=== PATIENT | female | born 1950 | race Caucasian/White ===

== ENCOUNTER 2017-05-08 03:02 | Emergency (ER) | payer MEDICARE, BC ==
[~2017-05-08 03:02] MED LIST: HYDROmorphone 1 MG/ML Syringe IVPUSH ONE; Ondansetron 4 MG/2 ML SDV IV ONE
[2017-05-08 03:10] VITALS: BP 174/81
[2017-05-08] MEDS ORDERED: methylPREDNISolone Sodium Succinate 125 MG/2 ML SDV IVPUSH ONE (03:52)
[2017-05-08] MEDS ORDERED: HYDROmorphone 1 MG/ML Syringe IVPUSH ONE (05:03)
--- NOTE | 2017-05-08 05:28 | EDM.PDOC ---
ED HPI GENERAL MEDICAL PROBLEM - General Chief Complaint: Lower Extremity Injury/Pain Stated Complaint: AMBULANCE Time Seen by Provider: 05/08/17 03:05 Source of Information: Reports: Patient History Limitations: Reports: No Limitations - History of Present Illness INITIAL COMMENTS - FREE TEXT/NARRATIVE: c/o sever low back pain with radiation down left leg increasing for past 2 days. Unable to find comfortable position and pain medication not working. Hx L4 -5 laminectomy in December, had been doing well until fell down on stairs. 2 months ago. Left Leg Pain Score (Numeric/FACES): 10 - Related Data Allergies Allergy/AdvReac Type Severity Reaction Status Date / Time amoxicillin [From Augmentin] Allergy Nausea Verified 05/08/17 03:11 clavulanic acid Allergy Nausea Verified 05/08/17 03:11 [From Augmentin] codeine Allergy Cannot Verified 05/08/17 03:10 Remember iodine Allergy Hives Verified 05/08/17 03:11 Home Meds: Home Meds metFORMIN [metFORMIN XR] 500 mg PO 01/17/14 [History] Past Medical History HEENT History: Reports: Impaired Vision Cardiovascular History: Reports: Hypertension Neurological History: Reports: Other (See Below) Other Neuro History: brain tumur Endocrine/Metabolic History: Reports: Other (See Below) Other Endocrine/Metabolic History: borderline diabetic - Past Surgical History GI Surgical History: Reports: Colonoscopy Musculoskeletal Surgical History: Reports: Hip Replacement Other Musculoskeletal Surgeries/Procedures:: fasitectomy, laminectomy Social & Family History - Tobacco Use Smoking Status *Q: Never Smoker Second Hand Smoke Exposure: No - Recreational Drug Use Recreational Drug Use: No Review of Systems - Review of Systems Review Of Systems: ROS reveals no pertinent complaints other than HPI. ED EXAM, GENERAL - Physical Exam Exam: See Below Exam Limited By: No Limitations General Appearance: Alert, Moderate Distress Eye Exam: Bilateral Eye: EOMI Ears: Normal External Exam Nose: Normal Inspection Throat/Mouth: Normal Inspection Head: Atraumatic, Normocephalic Neck: Normal Inspection Respiratory/Chest: No Respiratory Distress, Lungs Clear, Normal Breath Sounds Cardiovascular: Regular Rate, Rhythm GI/Abdominal: Normal Bowel Sounds, Soft, Non-Tender Back Exam: Paraspinal Tenderness (lumbar), Vertebral Tenderness (lumbar), Other (Sciatic pain Left). No: Full Range of Motion Neurological: Alert, Oriented, CN II-XII Intact, Normal Cognition, Normal Gait, Normal Reflexes, No Motor/Sensory Deficits Psychiatric: Normal Mood Skin Exam: Warm, Dry, Intact Course - Vital Signs Last Recorded V/S: Last Vital Signs Temp 98.5 F 05/08/17 03:02 Pulse 82 05/08/17 03:02 Resp 20 05/08/17 03:02 BP 174/81 H 05/08/17 03:02 Pulse Ox 98 05/08/17 03:02 - Orders/Labs/Meds Orders: Active Orders 24 hr Category Date Time Status Lumbar Spine wo Cont [CT] Urgent Exams 05/08/17 04:00 Taken Meds: Medications Discontinued Medications Generic Name Dose Route Start Last Admin Trade Name Freq PRN Reason Stop Dose Admin Hydromorphone HCl 1 mg 05/08/17 02:56 05/08/17 03:22 Dilaudid IVPUSH 05/08/17 02:57 1 mg ONETIME ONE Administration Hydromorphone HCl 1 mg 05/08/17 05:03 05/08/17 05:08 Dilaudid IVPUSH 05/08/17 05:04 1 mg ONETIME ONE Administration Methylprednisolone Sodium Succinate 125 mg 05/08/17 03:52 05/08/17 03:58 Solu-Medrol IVPUSH 05/08/17 03:53 125 mg ONETIME ONE Administration Ondansetron HCl 4 mg 05/08/17 02:57 05/08/17 03:20 Zofran IV 05/08/17 02:58 4 mg ONETIME ONE Administration - Radiology Interpretation Free Text/Narrative:: left paracentral disc herniation L4-L5 - Re-Assessments/Exams Free Text/Narrative Re-Assessment/Exam: 05/08/17 06:08 Resting , verbalizes improvement in pain. Tolerable at present. Has papointment scheduled on Tuesday with surgeon. Departure - Departure Time of Disposition: 06:03 Disposition: Home, Self-Care 01 Condition: Fair Clinical Impression: Back pain Qualifiers: Back pain location: low back pain Chronicity: acute Back pain laterality: left Sciatica presence: with sciatica Sciatica laterality: sciatica of left side Qualified Code(s): M54.42 - Lumbago with sciatica, left side - Discharge Information Instructions: Sciatica Forms: ED Department Discharge Additional Instructions: percocet 5/325 one every 6 hours as needed for pain Prenisone 20x3 days then 10mg every 3 days clinic follow up on Tuesday as scheduled. alternate tylenol and ibuprofen for mid to moderated pain - My Orders Last 24 Hours: My Active Orders 05/08/17 04:00 Lumbar Spine wo Cont [CT] Urgent - Assessment/Plan Last 24 Hours: My Active Orders 05/08/17 04:00 Lumbar Spine wo Cont [CT] Urgent
[2017-05-08] MEDS ORDERED: Acetaminophen/oxyCODONE 325-5 MG Tab ONE (06:07)
[2017-05-08] MEDS ORDERED: predniSONE 20 MG Tab ONE (06:08)
[2017-05-08] MEDS ORDERED: Acetaminophen/oxyCODONE 325-5 MG Tab PO ONE (06:08)
[2017-05-08] MEDS ORDERED: predniSONE 20 MG Tab PO ONE (06:08)
== END 2017-05-08 06:20 | disposition home or self-care (01) ==
LOC: DL.ED 03:02
DX: M54.42 Lumbago with sciatica, left side (principal); I10 Essential (primary) hypertension; Z88.1 Allergy status to other antibiotic agents; Z88.5 Allergy status to narcotic agent; Z88.8 Allergy status to other drugs, medicaments and biological substances; Z79.84 Long term (current) use of oral hypoglycemic drugs; Z98.890 Other specified postprocedural states
CPT/HCPCS: 72131; 96374; 96375; 99284; A9270; J1170; J2405; J2930